=== PATIENT | female | born 1960 | race Caucasian/White ===

== ENCOUNTER → 2018-09-20 15:50 | Outpatient (CLI) | payer OTHER, SELFPAY ==
[2018-08-13 12:07] VITALS: BMI 28.2
--- NOTE | 2018-09-20 15:52 | BI_ITS ---
MAMMOGRAPHY - BILATERAL SCREENING REASON FOR EXAM: Female, 58 years old. Routine annual screening examination. PERTINENT HISTORY: Grandmother with breast cancer. TECHNIQUE: Digital bilateral breast apolinar (3D mammographic acquisition) in the CC and MLO projections. 2-D mediolateral oblique (MLO) and craniocaudad (CC) views of both breasts were obtained. CAD: Full Field Digital Mammography with Computer Added Detection was performed. COMPARISON: Comparison is made with prior outside examination dated June 06, 2011. FINDINGS: Breast Composition: The breasts are heterogeneously dense, which may obscure small masses. There are no dominant masses or suspicious calcifications. No other significant abnormalities are identified. There has been no significant change since the prior study. BI/SCREEN MAMM (CAD) W/APOLINAR BILAT IMPRESSION: Stable bilateral screening mammogram. Yearly follow-up mammogram recommended. (A) ASSESSMENT CATEGORY: BIRADS Category 1: Negative. A letter regarding these results will be sent to the patient by the facility within 30 days. Approximately 10% of breast cancers are not detected by mammography. A normal mammogram should not delay biopsy of a clinically suspicious abnormality. [id number] Electronically Signed: Chito Salgado, at 9:17 EDT , Service support ,
== END ==
PROVIDERS: Referring Provider Obstetrics & Gynecology; Visit Provider Obstetrics & Gynecology
DX: Z12.31 Encounter for screening mammogram for malignant neoplasm of breast (principal)
CPT/HCPCS: 77063; 77067

== ENCOUNTER → 2018-10-08 17:40 | Outpatient (CLI) | payer OTHER, SELFPAY ==
[2018-10-08 15:57] VITALS: BMI 27.8
[2018-10-11 11:28] LABS: HPV APTIMA, High Risk Negative (Negative)
== END ==
PROVIDERS: Referring Provider Obstetrics & Gynecology; Visit Provider Obstetrics & Gynecology
DX: Z01.419 Encounter for gynecological examination (general) (routine) without abnormal findings (principal)
CPT/HCPCS: 87624; 88175; G0145

== ENCOUNTER → 2021-03-28 15:35 | Outpatient (CLI) | payer OTHER, SELFPAY ==
--- NOTE | 2021-03-28 15:37 | BI_ITS ---
MAMMOGRAPHY - BILATERAL SCREENING REASON FOR EXAM: Female, 60 years old. Routine annual screening examination. PERTINENT HISTORY: Grandmother with breast cancer. Remote left excisional breast biopsy. TECHNIQUE: Digital bilateral breast apolinar (3D mammographic acquisition) in the CC and MLO projections. 2-D mediolateral oblique (MLO) and craniocaudad (CC) views of both breasts were obtained. CAD: Full Field Digital Mammography with Computer Added Detection was performed. COMPARISON: Comparison is made with prior examination of 09/20/2018. FINDINGS: Breast Composition: The breasts are heterogeneously dense, which may obscure small masses. There are no dominant masses or suspicious calcifications. Stable small benign-appearing bilateral axillary lymph nodes. No other significant abnormalities are identified. There has been no significant change since the prior study. BI/SCRN MAMM (CAD)W/APOLINAR BILAT IMPRESSION: Stable bilateral screening mammogram. Yearly follow-up mammogram recommended. (A) ASSESSMENT CATEGORY: BIRADS Category 2: Benign. A letter regarding these results will be sent to the patient by the facility within 30 days. Approximately 10% of breast cancers are not detected by mammography. A normal mammogram should not delay biopsy of a clinically suspicious abnormality. [id number] Electronically Signed: Chito Salgado MD at 8:21 EDT , Service support ,
== END ==
PROVIDERS: PCP Family Medicine; Referring Provider Obstetrics & Gynecology; Visit Provider Obstetrics & Gynecology
DX: Z12.31 Encounter for screening mammogram for malignant neoplasm of breast (principal)
CPT/HCPCS: 77063; 77067

== ENCOUNTER → 2022-05-16 | Outpatient (CLI) | payer OTHER, SELFPAY ==
[2022-05-24 14:55] LABS: HPV APTIMA, High Risk Negative (Negative)
== END | disposition home or self-care (01) ==
LOC: LABSPEC 16:32
PROVIDERS: PCP Family Medicine; Visit Provider Obstetrics & Gynecology
DX: Z01.419 Encounter for gynecological examination (general) (routine) without abnormal findings (principal)
CPT/HCPCS: 87624; 88175; G0145

== ENCOUNTER → 2022-06-07 | Outpatient (CLI) | payer OTHER, SELFPAY ==
--- NOTE | 2022-06-07 15:30 | BI_ITS ---
MAMMOGRAPHY - BILATERAL SCREENING REASON FOR EXAM: Female, 61 years old. Routine annual screening examination. PERTINENT HISTORY: Grandmother with breast cancer. Remote left excisional breast biopsy. TECHNIQUE: Digital bilateral breast apolinar (3D mammographic acquisition) in the CC and MLO projections. 2-D mediolateral oblique (MLO) and craniocaudad (CC) views of both breasts were obtained. CAD: Full Field Digital Mammography with Computer Added Detection was performed. COMPARISON: Comparison is made with prior examination dated 03/28/2021 and 09/20/2018. FINDINGS: Breast Composition: The breasts are heterogeneously dense, which may obscure small masses. There are no dominant masses or suspicious calcifications. Stable small benign-appearing bilateral axillary lymph nodes. No other significant abnormalities are identified. There has been no significant change since the prior study. BI/SCRN MAMM (CAD)W/APOLINAR BILAT IMPRESSION: Stable bilateral screening mammogram. Yearly follow-up mammogram recommended. (A) ASSESSMENT CATEGORY: BIRADS Category 2: Benign. A letter regarding these results will be sent to the patient by the facility within 30 days. Approximately 10% of breast cancers are not detected by mammography. A normal mammogram should not delay biopsy of a clinically suspicious abnormality. [id number] Electronically Signed: Chito Salgado MD at 8:10 EST ,
== END | disposition home or self-care (01) ==
LOC: OPBI 15:29
PROVIDERS: PCP Family Medicine; Visit Provider Obstetrics & Gynecology
DX: Z01.419 Encounter for gynecological examination (general) (routine) without abnormal findings (principal); Z92.89 Personal history of other medical treatment; Z80.3 Family history of malignant neoplasm of breast; Z12.31 Encounter for screening mammogram for malignant neoplasm of breast
CPT/HCPCS: 77063; 77067

== ENCOUNTER → 2023-07-03 | Outpatient (CLI) | payer OTHER, SELFPAY ==
--- NOTE | 2023-07-03 13:26 | RAD_ITS ---
STUDY: X-RAY CHEST REASON FOR EXAM: Female, 63 years old. Cough and wheezing. TECHNIQUE: Frontal and lateral views of the chest. COMPARISON: None. FINDINGS: Hyperinflation. There is no demonstrated pleural abnormality. Normal size heart. Normal mediastinum and roque. Normal visualized pulmonary arteries. Normal visualized aortic arch and descending thoracic aorta. Normal visualized thoracic spine. Normal visualized ribs, clavicles, and shoulders. There is no demonstrated abnormality of the visualized soft tissue structures of the upper abdomen. RAD/Chest PA and Lateral IMPRESSION: Hyperinflation with no acute or active cardiopulmonary disease. Electronically Signed: Johnny Kennedy MD at 14:34 EST ,
== END | disposition home or self-care (01) ==
LOC: MTRAD 13:25
PROVIDERS: PCP Family Medicine; Referring Provider Family Medicine; Visit Provider Family Medicine
DX: J40 Bronchitis, not specified as acute or chronic (principal)
CPT/HCPCS: 71046

== ENCOUNTER → 2024-09-11 | Outpatient (CLI) | payer BC, SELFPAY ==
[2024-09-16 12:08] LABS: 17-Hydroxyprogesterone 47 ng/dL (.)
[2024-09-18 13:08] LABS: DHEA Sulfate 93.5 ug/dL (20.4-186.6); PROLACTIN 14.4 ng/mL (3.6-25.2); Testosterone Free 3.5 pg/mL (0.0-4.2)
== END | disposition home or self-care (01) ==
LOC: LAB 06:18
PROVIDERS: PCP Family Medicine; Referring Provider Obstetrics & Gynecology; Visit Provider Obstetrics & Gynecology
DX: N94.89 Other specified conditions associated with female genital organs and menstrual cycle (principal); N90.89 Other specified noninflammatory disorders of vulva and perineum
CPT/HCPCS: 36415; 82627; 83498; 84146; 84402; 84403; 82626

== ENCOUNTER → 2024-09-15 | Outpatient (CLI) | payer BC, SELFPAY ==
--- NOTE | 2024-09-15 15:30 | BI_ITS ---
EXAM: SCRN MAMM (CAD)W/APOLINAR BILAT DATE: 09/15/2024 CLINICAL HISTORY: F, Age 64 y/o , SCREENING MAMMOGRAM. Remote left excisional breast biopsy. Grandmother with breast cancer. BREAST CANCER RISK ASSESSMENT: Not assessed. TECHNIQUE: Bilateral screening digital breast tomosynthesis with 2D and 3D images. Computer aided detection. COMPARISON: Prior exam(s) dating back to June 07, 2022.. FINDINGS: Bilateral Breast Mammographic Findings: No significant masses, calcifications or other abnormalities are identified. TISSUE DENSITY: The breast tissue is heterogenously dense, which may obscure small masses. No suspicious masses, areas of developing architectural distortion, or suspicious calcifications. BI/SCRN MAMM (CAD)W/APOLINAR BILAT IMPRESSION: Right Breast: BI-RADS category 1, negative findings. Left Breast: BI-RADS category 1, negative findings. Normal interval followup mammograms are recommended in 12 months. A letter with findings and recommendations will be mailed to the patient. ASSESSMENT: BIRADS 1 NEGATIVE RECOMMENDATION: 1: ROUTINE ANNUAL FOLLOW-UP Bilateral in 1 Year Reading Location: [place] [id number]
== END | disposition home or self-care (01) ==
LOC: OPBI 15:18
PROVIDERS: PCP Family Medicine; Referring Provider Obstetrics & Gynecology; Visit Provider Obstetrics & Gynecology
DX: Z12.31 Encounter for screening mammogram for malignant neoplasm of breast (principal); Z80.3 Family history of malignant neoplasm of breast
CPT/HCPCS: 77063; 77067

== ENCOUNTER → 2024-09-19 | Outpatient (CLI) | payer BC, SELFPAY ==
--- NOTE | 2024-09-19 15:20 | US_ITS ---
EXAM: Pelvic ultrasound CLINICAL HISTORY: Adnexal mass COMPARISON: None available TECHNIQUE: Transabdominal and transvaginal scanning of the pelvis. FINDINGS: Retroverted uterus measuring 8.5 x 5.5 x 4.5 cm with 2 discrete fibroids both located in the posterior fundal region of the 1st measuring 3.5 x 3.6 x 3.6 cm, the 2nd measuring 2.7 x 2.9 x 1.9 cm. Right ovary is not visualized due to bowel gas. Left ovary is normal with preserved symmetric vascular flow, and contains a simple cyst measuring 3.1 x 2.6 x 2.1 cm. No fluid in the cul-de-sac. Endometrial thickness is normal measuring 5 mm. Nabothian cysts are seen. US/Pelvic w/ Transvaginal IMPRESSION: Leiomyomatous uterus. Nonvisualization of the right ovary. 3.1 cm simple left ovarian cyst. Reading Location: [facility]
== END | disposition home or self-care (01) ==
LOC: US 15:19
PROVIDERS: PCP Family Medicine; Referring Provider Obstetrics & Gynecology; Visit Provider Obstetrics & Gynecology
DX: N94.89 Other specified conditions associated with female genital organs and menstrual cycle (principal); N90.89 Other specified noninflammatory disorders of vulva and perineum
CPT/HCPCS: 76830; 76856

== ENCOUNTER → 2024-11-03 | Outpatient (CLI) | payer BC, SELFPAY ==
--- NOTE | 2024-11-03 15:50 | US_ITS ---
PROCEDURE: PELVIC W/ TRANSVAGINAL (USPELTVAG), 11/03/2024 REASON FOR EXAM: ADNEXAL MASS TECHNIQUE: Grayscale and color doppler transabdominal and transvaginal pelvic ultrasound was performed. COMPARISON: 09/19/2024 FINDINGS: Uterus: 9.4 x 5.8 x 5.6 cm, Retroflexed. Hypoechoic presumed fibroids up to 3.7 x 3.3 x 2.7 cm, previously up to 3.5 x 3.6 x 3.6 cm. Endometrium: 4 mm, echogenic secretory appearance. Cervix: Lesion measuring 1.7 x 1.0 x 1.4 cm could reflect a complex nabothian cyst however this is not definite. This was not seen previously.. Right ovary: 2.5 x 2.2 x 1.2 cm. Unremarkable. Left ovary: 4.1 3.4 x 2.5 cm. Simple appearing unilocular cyst measures 2.6 x 3.0 x 2.2 cm without detected vascularity. A simple appearing unilocular LEFT ovarian cyst previously measured 3.1 x 2.1 x 2.6 cm. Free fluid: None visualized. Other: Estimated bladder volume 401 mL..
== END | disposition home or self-care (01) ==
LOC: US 15:49
PROVIDERS: PCP Family Medicine; Referring Provider Obstetrics & Gynecology; Visit Provider Obstetrics & Gynecology
DX: D25.9 Leiomyoma of uterus, unspecified (principal); N94.89 Other specified conditions associated with female genital organs and menstrual cycle
CPT/HCPCS: 76830; 76856

== ENCOUNTER → 2025-05-11 | Outpatient (CLI) | payer BC, SELFPAY ==
--- NOTE | 2025-05-11 15:54 | US_ITS ---
PROCEDURE: PELVIC W/ TRANSVAGINAL REASON FOR EXAM: OVARIAN CYST TECHNIQUE: Procedure Code: USPELTVAG Modality: US Procedure: PELVIC W/ TRANSVAGINAL COMPARISON: November 03, 2024. FINDINGS: Measurements: Uterus: 7.6 cm x 5.7 cm x 4 cm with a volume of 90.9 mL Endometrial Thickness: 3 mm hyperechoic. Right Ovary: 2.9 cm x 1.6 cm x 1.1 cm with a volume of 2.7 mL. Left Ovary: 3.6 cm x 4.3 cm x 2.8 cm with a volume of 22.6 mL. TRANSABDOMINAL: Uterus: Retroverted. Once again, there are 3 uterine fibroids. The largest fibroid measures 4.2 cm 3.8 cm 3.2 cm. This is essentially unchanged. There is also evidence of a 1.4 cm x 1.4 cm x 0.8 cm complex nodular density in the cervix. This may represent a complex nabothian cyst although a fibroid should be excluded. This is unchanged as well. Endometrium: Unremarkable. Right ovary: Normal size and echotexture. Left ovary: Stable 3 cm x 3.4 cm x 2.4 cm unilocular cyst. Other: No large pelvic mass identified. Transvaginal sonography was performed to better visualize the endometrium. TRANSVAGINAL: Uterus: Retroverted. Stable fibroid uterus. Endometrium: Normal echotexture. Right ovary: Normal size and echotexture. Left ovary: Stable 3 cm x 3.4 cm 2.4 cm simple cyst. Other adnexal findings: None. Cul-de-sac: No free intraperitoneal fluid identified. Tenderness: No tenderness US/Pelvic w/ Transvaginal IMPRESSION: Stable examination. Reading Location: [id number]
--- OUTSIDE RECORDS SUMMARY | 2025-05-11 19:18 | XMS RPT_ITS | CCD ---
Author Organization [facility] Care Team Providers Care Crm Solution Architect Name Role Phone Dr. Kortney Schneider Primary Care Provider Dr. Kortney Schneider Referring Provider [phone] Dr. Teri Daniels Attending Provider [phone] Wyatt DIAZ, Dr. Sheets Primary Care Provider Wyatt DIAZ, Dr. Sheets Referring Provider Mateo Saldana Attending Provider Jeremiah DIAZ, Dr. Williamson Attending Provider Jeremiah DAIZ, Dr. Williamson Referring Provider Teri Daniels Attending Unavailable Teri Daniels Referring Unavailable Ksedel, Kortney Primary Care Unavailable Miedel, Kortney Primary Care Unavailable Teri Daniels Attending Unavailable Miedel, Kortney Referring Unavailable Miedel, Kortney Referring Unavailable Mateo Saldana Attending Unavailable Miedel, Kortney Primary Care Unavailable Miedel, Kortney Referring Unavailable Teri Daniels Attending Unavailable Miedel, Kortney Primary Care Unavailable Teri Daniels Attending Unavailable Miedel, Kortney Primary Care Unavailable Teri Daniels Referring Unavailable Miedel, Kortney Primary Care Unavailable Teri Daniels Referring Unavailable Teri Daniels Attending Unavailable Teri Daniels Attending Unavailable Teri Daniels Referring Unavailable Miedel, Kortney Primary Care Unavailable Teri Daniels Attending Unavailable Miedel, Kortney Primary Care Unavailable Teri Daniels Referring Unavailable Miedel, Kortney Primary Care Unavailable Teri Daniels Referring Unavailable Teri Daniels Attending Unavailable Medications Current Medications Medication Drug Class(es) Dates Sig (Normalized) Sig (Original) [place] (Nk) (3 sources) Start: 05-09-2021 [place] (Nk) A ctive May 09, 2021 12:00am Completed/Discontinued Medications Medication Drug Class(es) Dates Sig (Normalized) Sig (Original) benzonatate 200 mg oral capsule (4 sources) Non-narcotic Antitussive Start: End: take 1 capsule by mouth three times daily as needed for cough Benzonatate 200 mg capsule Discontinued 200 mg PO THREE TIMES A DAY as needed for cough August 12, 2024 1:00am September 08, 2024 3:23pm methylPREDNISolone 4 mg oral tablet (4 sources) Corticosteroid Start: End: take 1 tablet by mouth once Methylprednisolone (Medrol (Tab)) 4 mg tablets,dose pack Discontinued 0 PO per package directions August 12, 2024 1:00am September 08, 2024 3:23pm PO PER PKG DIR valACYclovir 1000 mg oral tablet (14 sources) Herpesvirus Nucleoside Analog DNA Polymerase Inhibitor, Herpes Simplex Virus Nucleoside Analog DNA Polymerase Inhibitor, Herpes Zoster Virus Nucleoside Analog DNA Polymerase Inhibitor Start: End: Valacyclovir (Valtrex) 1 gram tablet Discontinued 1000 mg PO TWICE A DAY 04 05June 28, 2021 12:30pm September 08, 2024 3:24pm Start: 09-06-2018 End: 10-11-2018 Valacyclovir (Valtrex) 1 gra m tablet Discontinued 1000 mg PO TWICE A DAY 10 September 06, 2018 1:00am October 10, 2018 12:00am October 11, 2018 12:08am Problems Active Problems Problem Classification Problem Date Documented Date Episodic/Chronic Benign neoplasm of uterus (10 sources) Uterine leiomyoma; Translations: [Leiomyoma of uterus, unspecified] Onset: 11-06-2024 09-08-2024 Episodic Comment on above: multiple fibroids, 1 2 week size uterus Other female genital disorders (15 sources) Mass of uterine adnexa; Translations: [Other specified conditions associated with female genital organs and menstrual cycle] 05-17-2023 Episodic Comment on above: ordered US, labs stable on exam. orde red pelvic us compare with previous [facility] scan Other female genital disorders (8 sources) Hypertrophy of clitoris; Translations: [Other specified noninflammatory disorders of vulva and perineum] 09-08-2024 Episodic Comment on above: ordered US and labs Past or Other Problems Problem Classification Problem Date Documented Date Episodic/Chronic Other female genital disorders (3 sources) Other specified conditions associated with female genital organs and menstrual cycle; Translations: [Other specified symptoms associated with female genital organs] Onset: 09-26-2024 Episodic Other female genital disorders (1 source) Other specified noninflammatory disorders of vulva and perineum; Translations: [Other specified noninflammatory disorders of vulva and perineum] Onset: 09-08-2024 Episodic Other screening for suspected conditions (not mental disorders or infectious disease) (2 sources) Encounter for screening mammogram for malignant neoplasm of breast; Translations: [Encounter for screening mammogram for malignant neoplasm of breast] Onset: 05-24-2024 Episodic Results Test Name Value Interpretation Reference Range Facility First Line Supervisor Office Visit Reporton 11-10-2024 First Line Supervisor Office Visit Report [facility]'s [address], [address] [place] [address] OFFICE VISIT Date of Service: 11/10/24 MR#: [id number] Acct: [id number] Name: TERI RICHTER Rep #: [id number] : 1960 Provider: Dr. Teri swain MD Age/Sex: 64/F [facility] Status: Signed Intake Vital Signs 09/08/24 15:22 11/10/24 09:47 11/10/24 09:48 Height 5 ft 9 in 5 ft 9 in 5 ft 9 in Weight: 185 lb 6 oz BMI 27.3 BP 151/90 H Intake Visit Reasons: US discussion for management Photocomposing Keyboard Operator Required: No Is patient in pain?: No Allergies No Known Allergies Allergy (Verified 11/10/24 09:47) Medications ???Medication ???Instructions ???Recorded ???Confirmed ???Type NK 11/10/24 11/10/24 History Is last menstrual period known: No Post menopausal: Yes Patient : No : No [facility] Medical History (Updated 11/11/24 @ 09:[address] Teri Daniels MD) Fibroadenoma of breast Encounter for gynecological examination Uterine fibroid H/O colposcopy with cervical biopsy History of hypertension Surgical History (Updated 11/10/24 @ 10:[address] Teri Daniels MD) H/O dilation and curettage H/O LEEP H/O: knee surgery Family History Grandmother Breast cancer CVA (cerebral vascular accident) Alzheimer disease Grandfather CVA (cerebral vascular accident) Social History Smoking Status: Never smoker alcohol intake: current details: social substance use type: does not use caffeine: Yes what type of physical activity do you participate in: walking seatbelt use: always do you feel safe at home: Yes additional social history: single -[place] [facility] US discussion for management Details: TERI RICHTER is a 64 year old who presents for follow up after ultrasound and labwork. simple adnexal cyst is 3 cm and stable. patient denies any pain or pressure, firboids stable. she states she does recall a remote history when she was a child of her having clitoromegaly and her mom having to tell her doctor not to surgically reduce the size, so she thinks that this may have been a chronic issure and it may have just been more prominent on this last exam. History 0 Elective abortions Hx Para Spontaneous abortions Hx # Term Pregnancies Ectopic pregnancies Hx # Pregnancies Multiple births # of living children ROS Const Constitutional: Denies fatigue, fever(s), headache(s), increased appetite, poor appetite, weight gain or weight loss GI GI: Reports as per HPI; Denies abdominal pain, constipation, nausea or vomiting : Reports as per HPI; Denies difficulty voiding, dysuria, hematuria, pelvic pain, urinary frequency, urinary incontinence, urinary hesitancy, urinary urgency, vaginal discharge, vaginal dryness, vaginal odor, vaginal pruritus or other Exam Const General: cooperative, healthy appearing, comfortable, no acute distress and well developed Orientation: alert HENMT Head: normal to inspection and normocephalic Ears: hearing grossly normal bilaterally and external ears normal Nose: external nose normal and nares normal Face and sinus: normal facial exam Neck Neck: normal visual inspection, no lymphadenopathy and trachea midline Thyroid: thyroid normal Resp Effort Inspection: normal respiratory effort Musc Other: gross motor intact no deficits, full bilateral strength Skin General: no rashes or lesions noted Neuro Motor: muscle tone normal throughout Coding Level of Care Code Off vis,est,level 3 Diagnoses Adnexal mass N94.89 H/O LEEP Z98.890 Uterine fibroid D25.9 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 counseled regardin options, prefers exp managment. repeat US in 6 months, labs WNL. (2) H/O LEEP: Status: Acute (3) Uterine fibroid: Status: Acute Comment: multiple fibroids, 12 week size uterus (4) Clitoromegaly: Status: Acute Comment: ordered US and labs- WNL. has history of this per patient, may have just been enlarged moreso on recent exam Orders: Orders Pelvic w/ Transvaginal 6 Months N94.89 - Other specified conditions associated with female genital organs and menstrual cycle Plan Problem list updated and treatment plans were reviewed with the patient and relevant educational handouts given. See problem list details for specific plan information. 11/11/24918 Date [facility] Daniels [facility]: Date (if applicable) CC: Normal [facility] Pelvic w/ Transvaginalon Pelvic w/ Transvaginal [facility] Imaging Services [address] [place], [place] [address] Pelvic w/ Transvaginal MR#: [id number] Acct: [id number] Name: TERI RICHTER Rep #: [id number] : 1960 F 64 From: Nehemias Chen MD PCP: Dr. Kortney Schneider MD Status: REG CLI Study: Pelvic w/ Transvaginal Date of Exam: 11/03/24 Exam# [id number] Ordering Dr: Teri Daniels PROCEDURE: PELVIC W/ TRANSVAGINAL (USPELTVAG), 11/03/2024 REASON FOR EXAM: ADNEXAL MASS TECHNIQUE: Grayscale and color doppler transabdominal and transvaginal pelvic ultrasound was performed. COMPARISON: 09/19/2024 FINDINGS: Uterus: 9.4 x 5.8 x 5.6 cm, Retroflexed. Hypoechoic presumed fibroids up to 3.7 x 3.3 x 2.7 cm, previously up to 3.5 x 3.6 x 3.6 cm. Endometrium: 4 mm, echogenic secretory appearance. Cervix: Lesion measuring 1.7 x 1.0 x 1.4 cm could reflect a complex nabothian cyst however this is not definite. This was not seen previously.. Right ovary: 2.5 x 2.2 x 1.2 cm. Unremarkable. Left ovary: 4.1 3.4 x 2.5 cm. Simple appearing unilocular cyst measures 2.6 x 3.0 x 2.2 cm without detected vascularity. A simple appearing unilocular LEFT ovarian cyst previously measured 3.1 x 2.1 x 2.6 cm. Free fluid: None visualized. Other: Estimated bladder volume 401 mL.. US/Pelvic w/ Transvaginal IMPRESSION: 1. Redemonstrated 3.0 cm simple appearing unilocular LEFT ovarian cyst, O-RADS 2. Given persistence, a benign neoplasm such as a cystadenoma is possible. Size is borderline per O-RADS guidelines; conservatively would recommend follow-up pelvic ultrasound in 12 months given that the patient is postmenopausal. 2. 1.7 cm potentially solid-appearing cervical lesion could alternatively reflect a complex nabothian cyst. Recommend updated cervical cancer screening and correlation with physical exam as well as attention on above follow-up imaging. 3. Presumed fibroids up to 3.7 cm. 4. Additional description as above. Reading Location: [id number] CC: Dr. Kortney Schneider MD; Dr. Teri Daniels MD Bus System Operator: Signed Normal [facility] Pelvic w/ Transvaginalon Pelvic w/ Transvaginal [facility] Imaging Services [address] [place] [address] Pelvic w/ Transvaginal MR#: [id number] Acct: [id number] Name: TERI RICHTER Rep #: [id number] : 1960 F 64 From: Jarrett Fox MD PCP: Dr. Kortney Schneider MD Status: REG CLI Study: Pelvic w/ Transvaginal Date of Exam: 09/19/24 Exam# [id number] Ordering Dr: Teri Daniels EXAM: Pelvic ultrasound CLINICAL HISTORY: Adnexal mass COMPARISON: None available TECHNIQUE: Transabdominal and transvaginal scanning of the pelvis. FINDINGS: Retroverted uterus measuring 8.5 x 5.5 x 4.5 cm with 2 discrete fibroids both located in the posterior fundal region of the 1st measuring 3.5 x 3.6 x 3.6 cm, the 2nd measuring 2.7 x 2.9 x 1.9 cm. Right ovary is not visualized due to bowel gas. Left ovary is normal with preserved symmetric vascular flow, and contains a simple cyst measuring 3.1 x 2.6 x 2.1 cm. No fluid in the cul-de-sac. Endometrial thickness is normal measuring 5 mm. Nabothian cysts are seen. US/Pelvic w/ Transvaginal IMPRESSION: Leiomyomatous uterus. Nonvisualization of the right ovary. 3.1 cm simple left ovarian cyst. Reading Location: [facility] CC: Dr. Kortney Schneider MD; Dr. Teri Daniels MD Bus System Operator: Signed Normal [facility] DHEA Sulfateon 09-18-2024 DHEA SULFATE 93.5 ug/dL Normal 20.4-186.6 [facility] Comment on above: Order Comment: N Performed By: #### L 3100.9000, L3400.4800, L3100.5400, L509.3001, L3300.1500 #### [facility] [address] [place], [address] PROLACTIN 4465on 09-18-2024 PROLACTIN 14.4 ng/mL Normal 3.6-25.2 [facility] Comment on above: Performed By: #### L 3100.9000, L3400.4800, L3100.5400, L509.3001, L3300.1500 #### [facility] [address] [place], [place], [address] Testosterone Freeon 09-19-19 TESTOSTER FREE 3.5 pg/mL Normal 0.0-4.2 [facility] Comment on above: Result Comment: Perf ormed at: [address] [id number] Tower Attendant: Tony Mccabe PhD, Phone: [phone] Performed at: [address] [id number] Tower Attendant: Eli Bush MD, Phone: [phone] Performed By: #### L 3100.9000, L3400.4800, L3100.5400, L509.3001, L3300.1500 ####[facility] [address] [place], [place], [address] 17-Hydroxyprogesteroneon 17ALPHA OH-PROG 47 ng/dL Normal . [facility] Comment on above: Order Comment: Test( s) 494614-62-GU Progesterone LCMS was developed and its performance characteristics determined by [employer]. It has not been cleared or approved by the Food and Drug Administration. N Result Comment: Adul t Female Follicular 15 - 70 Luteal 35 - 290 Performed at: [address] [id number] Tower Attendant: Eli Bush MD, Phone: [phone] Performed By: #### L 3100.9000, L3400.4800, L3100.5400, L509.3001, L3300.1500 #### [facility] [address] [place], [address] Breast imaging reportOrdered By: Chito Salgado on 09-16-2024 Study report [facility] Imaging Services [address] [place] [address] SCRN MAMM (CAD)W/APOLINAR BILAT MR#: [id number] Acct: [id number] Name: TERI RICHTER Rep #: [id number] : 1960 F 64 From: Conner Salgado MD PCP: Dr. Kortney Schneider MD Status: [facility] Study:SCRN MAMM (CAD)W/APOLINAR BILAT Date of Exa m: 09/15/24 Exam# [id number] Ordering Dr: Teri Delaney MD EXAM: SCRN MAMM (CAD)W/APOLINAR BILAT DATE: 09/15/2024 CLINICAL HISTORY: F, Age 64 y/o , SCREENING MAMMOGRAM. Remote left excisional breast biopsy. Grandmother with breast cancer. BREAST CANCER RISK ASSESSMENT: Not assessed. TECHNIQUE: Bilateral screening digital breast tomosynthesis with 2D and 3D images. Computeraided detection. COMPARISON: Prior exam(s) dating back to June 07, 2022.. FINDINGS: Bilateral Breast Mammographic Findings: No significant masses, calcifications or other abnormalities are identified. TISSUE DENSITY: The breast tissue is heterogenously dense, which may obscure small masses. No suspicious masses, areas of developing architectural distortion, or suspicious calcifications. BI/SCRN MAMM (CAD)W/APOLINAR BILAT IMPRESSION: Right Breast: BI-RADS category 1, negative findings. Left Breast: BI-RADS category 1, negative findings. Normal interval followup mammograms are recommended in 12 months. A letter with findings and recommendations will be mailed to the patient. ASSESSMENT: BIRADS 1 NEGATIVE RECOMMENDATION: 1: ROUTINE ANNUAL FOLLOW-UP Bilateral in 1 Year Reading Location: [facility] CC: Dr. Kortney Schneider MD; Dr. Teri Daniels MD ~ Bus System Operator: Signed [facility] SCRN MAMM (CAD)W/APOLINAR BILATo n 09-15-2024 SCRN MAMM (CAD)W/APOLINAR BILAT [facility] Imaging Services [address] [place] [address] SCRN MAMM (CAD)W/APOLINAR BILAT MR#: [id number] Acct: [id number] Name: TERI RICHTER Rep #: [id number] : 1960 F 64 From: Chito hyatt MD PCP: Dr. Kortney Schneider MD Status: REG CLI Study: SCRN MAMM (CAD)W/APOLINAR BILAT Date of Exam: 08/30 01/23 Exam# [id number] Ordering Dr: Teri Daniels EXAM: SCRN MAMM (CAD)W/APOLINAR BILAT DATE: 09/15/2024 CLINICAL HISTORY: F, Age 64 y/o , SCREENING MAMMOGRAM. Remote left excisional breast biopsy. Grandmother with breast cancer. BREAST CANCER RISK ASSESSMENT: Not assessed. TECHNIQUE: Bilateral screening digital breast tomosynthesis with 2D and 3D images. Computer aided detection. COMPARISON: Prior exam(s) dating back to June 07, 2022.. FINDINGS: Bilateral Breast Mammographic Findings: No significant masses, calcifications or other abnormalities are identified. TISSUE DENSITY: The breast tissue is heterogenously dense, which may obscure small masses. No suspicious masses, areas of developing architectural distortion, or suspicious calcifications. BI/SCRN MAMM (CAD)W/APOLINAR BILAT IMPRESSION: Right Breast: BI-RADS category 1, negative findings. Left Breast: BI-RADS category 1, negative findings. Normal interval followup mammograms are recommended in 12 months. A letter with findings and recommendations will be mailed to the patient. ASSESSMENT: BIRADS 1 NEGATIVE RECOMMENDATION: 1: ROUTINE ANNUAL FOLLOW-UP Bilateral in 1 Year Reading Location: [place] [address] CC: Dr. Kortney Schneider MD; Dr. Teri Daniels MD Bus System Operator: Signed Normal [facility] 17-Hydroxyprogesterone [Mass /Vol]Ordered By: Teri Dainels on 09-11-2024 17-Hydroxyprogesterone 47 ng/dL . [facility] Comment on above: Adult Female Follicu lar 15 - 70 Luteal 35 - 290Performed at: [facility] [id number] Director: Eli Bush MD, Phone: [phone] Dehydroepiandrosterone sulfa te (DHEA-S) measurementOrdered By: Teri Daniels on 09-11-2024 Dehydroepiandrosterone Sulfate 93.5 ug/dL 20.4-186.6 [facility] L509.3001on 09-11-2024 Testosterone [Mass/Vol] 29.60 ng/dL Normal [facility] Comment on above: Performed By: #### L 3100.9000, L3400.4800, L3100.5400, L509.3001, L3300.1500 #### [facility] [address] [place], [address] Laboratory - Chemistry and C hemistry - challengeOrdered By: Teri Daniels on 09-11-2024 Testosterone [Mass/Vol] 29.60 ng/dL [facility] Prolactin [Mass/Vol]Ordered By: Teri Daniels on 09-11-2024 Prolactin 14.4 ng/mL 3.6-25.2 [facility] Serum or plasma 17-hydroxypr ogesterone measurement (mass/volume)Ordered By: Teri Daniels on 09-11-2024 17-Hydroxyprogesterone [Mass/Vol] 47 ng/dL . [facility] Comment on above: Adult Female Follicu lar 15 - 70 Luteal 35 - 290Performed at: [facility] [id number] Director: Eli Bush MD, Phone: [phone] Serum or plasma free testost erone measurement (mass/volume)Ordered By: Teri Daniels on 09-11-2024 Testosterone Free [Mass/Vol] 3.5 pg/mL 0.0-4.2 [facility] Comment on above: Performed at: [employer] [address] [id number] Director: Tony Mccabe PhD, Phone: [phone] at: [employer] [id number] Director: Eli Bush MD, Phone: [phone] Serum or plasma prolactin me asurement (mass/volume)Ordered By: Teri Daniels on 09-11-2024 Prolactin [Mass/Vol] 14.4 ng/mL 3.6-25.2 [facility] Testosterone Free [Mass/Vol] Ordered By: Teri Daniels on 09-11-2024 Free Testosterone 3.5 pg/mL 0.0-4.2 [facility] Comment on above: Performed at: [employer] [address] [id number] Director: Tony Mccabe PhD, Phone: [phone] at: [employer] [address] [id number] Director: Eli Bush MD, Phone: [phone] First Line Supervisor Office Visit Reporton 09-08-2024 First Line Supervisor Office Visit Report [facility]'s [address], [address] [place] [address] OFFICE VISIT Date of Service: 09/08/24 MR#: [id number] Acct: [id number] Name: TERI RICHTER Rep #: [id number] : 1960 Provider: Dr. 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 Teri Daniels MD) Fibroadenoma of breast Encounter for gynecological examination Uterine fibroid H/O colposcopy with cervical biopsy History of hypertension Surgical History H/O dilation and curettage H/O LEEP H/O: knee surgery Family History Grandmother Breast cancer CVA (cerebral vascular accident) Alzheimer disease Grandfather CVA (cerebral vascular accident) Social History Smoking Status: Never smoker alcohol intake: current details: social substance use type: does not use caffeine: Yes what type of physical activity do you participate in: walking seatbelt use: always do you feel safe at home: Yes additional social history: single -[place] History 0 Elective abortions Hx Para Spontaneous abortions Hx # Term Pregnancies Ectopic pregnancies Hx # Pregnancies Multiple births # of living children HPI Encounter for routine gynecological examination Details: TERI RICHTER is a 64 year old who presents for annual exam. Last PAP: 05/16/2022 - normal History of abnormal PAP: yes leep Last mammogram: 06/07/2022 - normal History of abnormal mammogram: nl Colon cancer screening: up to date Other preventative health care screenings: PCP [facility] Female Reproductive History Menopausal Symptoms: No hot flashes, No night sweats, No difficulty concentrating and No change in libido ROS Const Constitutional: Reports as per HPI; Denies fatigue, increased appetite, poor appetite, night sweats, weight gain or weight loss Cardio Card: Denies chest pain Resp Resp: Denies cough or dyspnea GI GI: Reports as per HPI; Denies abdominal pain, bloating, constipation, nausea or vomiting : Reports as per HPI and other; Denies difficulty voiding, dysuria, hematuria, hot flashes, nipple discharge, pelvic pain, prolapse symptoms, urinary frequency, urinary incontinence, urinary urgency, vaginal discharge, vaginal dryness, vaginal odor or vaginal pruritus Skin Skin/Breast: Reports breast skin changes; Denies changing lesions, breast mass, breast pain or nipple discharge Psych Psych: Denies anxiety, change in libido, depression or difficulty concentrating Exam Const General: cooperative, healthy appearing, comfortable, no acute distress, well developed and well groomed [facility] Head: normal to inspection and normocephalic Ears: hearing grossly normal bilaterally and external ears normal Nose: external nose normal Face and sinus: normal facial exam Neck Neck: normal visual inspection, full ROM and no lymphadenopathy Thyroid: thyroid normal Chest Chest palpation inspection: normal inspection of the chest Breast inspection: normal inspection of the breasts and normal inspection of the axillae Breast palpation: normal palpation of the breasts, normal palpation of the axillae and no axillary lymphadenopathy Resp Effort Inspection: normal respiratory effort GI Inspection: normal to inspection and non-distended Palpation: soft, no hepatosplenomegaly and no guarding General: bladder normal to palpation External Female Exam: normal external appearance, normal appearance of the urethra and no lesions Urethra: normal appearance of the urethra and normal palpation Speculum Exam - Vagina: normal appearance of the vagina, normal vaginal discharge and other (clitoromegaly) Speculum Exam - Cervix: normal appearance of the cervix, no cervical discharge, no lesions and nontender Bimanual Exam- Vagina Uterus: normal bimanual exam (mildly enlarged), bladder normal to palpation, No tender, uterine mobility normal, consistency normal, non-tender, no cervical motion tenderness and enlarged (12 week uterus with adnexal mass now also palpated, different from previous) Bimanual Exam- Adnexa, other: non-tender and mass on the right Skin General: no rashes or lesions noted Neuro General: jose (more content not included)... Normal [facility] Urgent Care Visit Reporton 0 08-12-2024 Urgent Care Visit Report [facility] [address], [address] [place] [address] OFFICE VISIT Date of Service: 08/12/24 MR#: [id number] Acct: [id number] Name: TERI RICHTER Rep #: [id number] : 1960 Provider: RADHA Guillermo Age/Sex: 64/F Location[place] [facility] Status: Signed Intake Vital Signs 05/17/23 15:43 08/12/24 12:09 Height 5 ft 9 in 5 ft 9 in Weight: 197 lb BMI 29.0 BP 102/60 Position Sitting Pulse 91 Temp 98.3 F Temp Source Oral Pulse Oximetry (%) 98 Oxygen Delivery Method room air Intake Visit Reasons: CHEST CONGESTION Accompanied by: Self Allergies No Known Allergies Allergy (Verified 08/12/24 12:06) Medications ???Medication ???Instructions ???Recorded ???Confirmed ???Type valacyclovir 1 gram tablet 1,000 mg PO BID 5 days #10 tabs 05/17/23 Rx (Valtrex) benzonatate 200 mg capsule 200 mg PO TID PRN cough #20 caps 0 08/12/24 08/12/24 Rx methylprednisolone 4 mg tablets in See Rx Instructions PO PER PKG D IR 08/12/24 08/12/24 Rx a dose pack (Medrol (Tab)) #21 tabs Have you fallen in the past year?: No Nurse's Note: Patient has chest congestion and ST and Diarrhea and Fever. Patient states that her fever broke. Patient also has tightness in her chest. Patient has been taking vitamins and Mucinex. [facility] Medical History (Updated 05/17/23 @ 16:[address] Teri Daniels MD) Fibroadenoma of breast Encounter for gynecological examination Uterine fibroid Ovarian cyst H/O colposcopy with cervical biopsy History of hypertension Surgical History H/O dilation and curettage H/O LEEP H/O: knee surgery Family History Grandmother Breast cancer CVA (cerebral vascular accident) Alzheimer disease Grandfather CVA (cerebral vascular accident) Social History Smoking Status: Never smoker alcohol intake: current details: social substance use type: does not use caffeine: Yes what type of physical activity do you participate in: walking seatbelt use: always do you feel safe at home: Yes additional social history: single -[place] HPI HPI Details: TERI RICHTER, is a 64 F who presents to the office today for approximately 96-hour history of persistent fever, chills, cough, chest tightness/congestion (w/o sob/jacobs), DORSEY, myalgias, fatigue, and diarrhea.??? No complaints of chest pain or shortness of breath or dyspnea on exertion. Nonsmoker. Several close contacts recently diagnosed with similar URI complaints. No over the counter taken to assist. No other associated symptoms and no other alleviating/aggravati ng factors. ROS Const Constitutional: No other (As above) Exam Const General: cooperative, healthy appearing and no acute distress Orientation: alert, awake and oriented x3 HENMT Head: normal to inspection Ears: hearing grossly normal bilaterally, external ears normal, TM's normal bilaterally and EAC's normal Nose: external nose normal, nares normal, septum normal and clear nasal discharge Face and sinus: normal facial exam, sinuses nontender and face symmetric Mouth: oral mucosae normal, lip normal, tongue normal and oropharynx normal Throat: posterior oropharynx normal, tonsils normal, uvula midline and no postnasal drainage Eyes General: appearance normal, both eyes and all related structures Neck Neck: normal visual inspection, full ROM, no lymphadenopathy, no meningeal signs and supple Neck mass: No Thyroid: thyroid normal Lymphatic: no lymphadenopathy noted Chest Chest palpation inspection: normal inspection of the chest Resp Effort Inspection: normal respiratory effort, able to speak in complete sentences and cough Quality of cough: wet (nonproductive in office today) Auscultation: Bilateral: Clear to Auscultation Cardio Palpation: normal PMI Rate: tachycardic Rhythm: regular rhythm Heart Sounds: S1 normal, S2 normal, no gallops, no murmurs and no rubs Pulses: radial pulses present Skin General: no rashes or lesions noted Neuro General: patient alert, patient awake and patient oriented x3 Cognition: normal cognition Speech: speech normal Psych Appearance: grossly normal Mental Status: mental status grossly normal Mood: congruent mood Affect: normal affect Speech and Movement: speech and movement normal Attitude: cooperative Diagnoses Influenza A??? J10.1 Assessment and Plan Assessment and Plan (1) Influenza A: Status: Acute Plan: See POC results. Medrol and benzonatate as prescribed today. Supportive measures as instructed today. Work excuses as provided. Follow-up with PCP in 5 to 7 days should symptoms not improve, ED sooner should symptoms worsen (more content not included)... Normal [facility] Cervical or vagninal specime n microscopic examination by cytology stain (reported ason 05-16-2022 Cytology report Cyto stain Doc (Cvx/Vag) Comment . [facility] Work Phone: Comment on above: The Pap smear is a s creening test designed to aid in thedetection of premalignant and malignant conditions of theuterine cervix. It is not a diagnostic procedure andshould not be used as the sole means of detecting cervicalcancer. Both false-positive and false-negative reports dooccur. Detection in cervical specim en of any of human papilloma virus (HPV) 16, 18, 31, 33,on 05-16-2022 HPV 16+18+31+33+35+39+45+51+5 2+56+58+59+66+68 DNA Probe+sig amp Ql (Cvx) Negative Negative [facility] Work Phone: Comment on above: This nucleic acid am plification test detects fourteen high-risk HPV types (16,18,31,33,35,39,45,51,52,56,58,59,66,68)without differentiation. Laboratory - Cytologyon 05-02 Asbestos Remover Cyto stain Nom (Cvx/Vag) [ID] Comment . [facility] Work Phone: Comment on above: Reinaldo Belle ytotechnologist (ASCP) Laboratory - Miscellaneous t estson 05-16-2022 Service comment (Unsp spec) [Interp] Comment . [facility] Work Phone: Comment on above: This liquid based Th inPrep(R) pap test was screened withthe use of an image guided system. Service comment (Unsp spec) [Interp] . . [facility] Work Phone: Liquid-based cerv Pap + CT/G C by MANDI w reflex to high-risk HPV for ASCUSon 05-16-2022 Cytology report Cyto stain.thin prep Doc (Cvx/Vag) Comment . [facility] Work Phone: Comment on above: Criteria not met, HP V Genotype not performed.Performed at: [address] [place] [id number] Director: Scarlet Vaughn MD, Phone: [phone] at: =G - [facility] [address] [place] [id number] Director: Scarlet Vaughn MD, Phone: [phone] No Panel Informationon 05-16 Pathology report final diagnosis Narrative Comment . [facility] Work Phone: Comment on above: NEGATIVE FOR INTRAEP ITHELIAL LESION OR MALIGNANCY.CELLULAR CHANGES ASSOCIATED WITH ATROPHY ARE PRESENT. Vital Signs Date Time Vital Sign Value Performing Clinician Faci lity 09-08-2024 15:22-0400 Body height 175.[address] Kortney Schneider MD Work Phone: [facility] 09-08-2024 15:22-0400 Body mass index (BMI) [Ratio] 29.1 kg/m2 Dr. Kortney Schneider MD Work Phone: [facility] 09-08-2024 15:22-0400 Body weight 89.[address] Kortney Schneider MD Work Phone: [facility] 09-08-2024 15:22-0400 Diastolic blood pressure 89 mm[Hg] Dr. Kortney Schneider MD Work Phone: [facility] 09-08-2024 15:22-0400 Systolic blood pressure 136 mm[Hg] Dr. Kortney Schneider MD Work Phone: [facility] 08-12-2024 12:09-0500 Body mass index (BMI) [Ratio] 29 kg/m2 Dr. Kortney Schneider MD Work Phone: [facility] 08-12-2024 12:09-0500 Body temperature 98.3 [degF] Dr. Kortney Schneider MD Work Phone: [facility] 08-12-2024 12:09-0500 Body weight 89.[address] Kortney Scnheider MD Work Phone: [facility] 08-12-2024 12:09-0500 Diastolic blood pressure 60 mm[Hg] Dr. Kortney Schneider MD Work Phone: [facility] 08-12-2024 12:09-0500 Heart rate 91 /min Dr. Kortney Schneider MD Work Phone: [facility] 08-12-2024 12:09-0500 SaO2% (BldA) [Mass fraction] 98 % Dr. Kortney Schneider MD Work Phone: [facility] 08-12-2024 12:09-0500 Systolic blood pressure 102 mm[Hg] Dr. Kortney Schneider MD Work Phone: [facility] 05-17-2023 15:43-0500 Body height 175.[address] Kortney Schneider Work Phone: [facility] 05-17-2023 15:43-0500 Body mass index (BMI) [Ratio] 29.5 kg/m2 Dr. Kortney Schneider Work Phone: [facility] 05-17-2023 15:43-0500 Body weight 90.[address] Kortney Schneider Work Phone: [facility] 05-17-2023 15:43-0500 Diastolic blood pressure 90 mm[Hg] Dr. Kortney Schneider Work Phone: [facility] 05-17-2023 15:43-0500 Systolic blood pressure 150 mm[Hg] Dr. Kortney Schneider Work Phone: [facility] 05-16-2022 14:27-0500 Body height 175.[address] Kortney Schneider Work Phone: [facility] Work Phone: 05-16-2022 14:26-0500 Body mass index (BMI) [Ratio] 30.1 kg/m2 Dr. Kortney Schneider Work Phone: [facility] Work Phone: 05-16-2022 14:26-0500 Body weight 92.[address] Kortney Schneider Work Phone: [facility] Work Phone: 05-16-2022 14:26-0500 Diastolic blood pressure 82 mm[Hg] Dr. Kortney Schneider Work Phone: [facility] Work Phone: 05-16-2022 14:26-0500 Systolic blood pressure 163 mm[Hg] Dr. Kortney Schneider Work Phone: [facility] Work Phone: Encounters Encounter Date Encounter Type Care Provider Facility Start: 05-11-2025 ambulatory Kortney Schneider Facility: [facility] Start: 11-10-2024 End: 11-10-2024 ambulatory Kortney Schneider Facility[place] Start: 11-03-2024 End: 11-03-[address] Kortney Schneider MD Work Phone: [facility] Work Phone: Start: 11-03-2024 End: 11-03-[address] Teri Daniels MD -Ultrasound, [facility] Work Phone: Start: 11-03-2024 End: 11-03-2024 ambulatory Kortney Schneider Facility:[facility] Start: 09-19-2024 End: 09-19-[address] Kortney Schneider MD Work Phone: [facility] Work Phone: Start: 09-19-2024 End: 09-19-[address] Teri Daniels MD -Ultrasound, [facility] Work Phone: Start: 09-19-2024 End: 09-19-2024 ambulatory Teri Daniels Facility:[facility] Start: 09-15-2024 End: 09-15-[address] Kortney Schneider MD Work Phone: [facility] Work Phone: Start: 09-15-2024 End: 09-15-[address] Teri Daniels MD -Outpatient Breast Imaging Work Phone: Start: 09-15-2024 End: 09-15-2024 ambulatory Teri Daniels Facility:[facility] Start: 09-11-2024 End: 09-11-[address] Kortney Schneider MD Work Phone: [facility] Work Phone: Start: 09-11-2024 End: 09-11-[address] Teri Daniels MD -Laboratory Work Phone: Start: 09-11-2024 End: 09-11-2024 ambulatory eTri Daniels Facility:[facility] Start: 09-08-2024 End: 09-08-[address] Teri Daniels MD -[facility] Work Phone: Start: 09-08-2024 End: 09-08-[address] Teri Daniels MD [facility] Start: 09-08-2024 End: 09-08-2024 ambulatory Kortney Schneider [place] Start: 08-12-2024 End: 08-12-2024 Patient encounter procedure Mateo Shepherd HI -[facility] Work Phone: Start: 08-12-2024 End: 08-12-2024 ambulatory Kortney Schneider Facility:[facility] Start: 05-28-2024 ambulatory Teri Callejasi lity:[facility] Start: 07-03-2023 End: 07-03-[address] Kortney Schneider Work Phone: [facility] Work Phone: Start: 07-03-2023 End: 07-03-[address] Kortney Schneider Work Phone: [facility] Work Phone: Start: 05-17-2023 End: 05-17-[address] Kortney Schneider Work Phone: [facility] Work Phone: Start: 06-07-2022 End: 06-07-[address] Kortney Schneider Work Phone: [facility] Work Phone: Start: 06-07-2022 End: 06-07-[address] Kortney Schneider Work Phone: [facility]-Outpatient Breast Imaging Start: 05-16-2022 End: 05-16-[address] Kortney Schneider Work Phone: [facility] Work Phone: Start: 05-16-2022 End: 05-16-[address] Kortney Schneider Work Phone: [facility]-Laboratory, Specimen Start: 05-16-2022 End: 05-16-[address] Kortney Schneider Work Phone: [facility] Procedures Date Procedure Procedure Detail Performing Clinician Start: 11-03-[address] Kortney Schneider MD Work Phone: Start: 09-19-[address] Kortney Schneider MD Work Phone: Start: 09-15-[address] Kortney Schneidre MD Work Phone: Start: 09-11-[address] Kortney Schneider MD Work Phone: Start: 07-03-2023 Plain chest X-ray Dr. Kortney Schneider Work Phone: Start: 06-07-[address] Kortney Schneider Work Phone: Plan of Treatment Date Care Activity Detail Author Start: 09-19-2024 Pelvic echography Pelvic w/ Transvag inal [facility] Start: 09-19-2024 Pelvis [facility] MG Breast - bilatera l Screening [facility] Work Phone: [facility] Payers Date Payer Category Payer Self-pay [id number] 2024 Unknown [id number] 2024 Unknown [id number] Unknown ANTHEM [id number] Unknown [id number] 2.16.8 [id number] Unknown [id number] 2.16.8 [id number] Unknown [id number] 2.16.8 [id number] Unknown [id number] 2.16.8 [id number] Unknown [id number] 2.16.8 [id number] Unknown [id number] 2.16.8 [id number] Unknown [id number] 2.16.8 [id number] Unknown [id number] 2.16.8 [id number] Unknown [id number] 2.16.8 [id number] Social History Date Type Detail Facility Start: 05-16-2022 End: 05-17-2023 Tobacco smoking status NHIS Unknown if ever smoked [facility] Start: 1960 Sex Assigned At Female [facility] Start: 05-17-2023 Tobacco smoking stat us NHIS Never smoked tobacco (finding) [facility] Start: 09-21-2024 End: 09-26-2024 Sex Female (finding) [facility] Radiology Diagnostic study note 11-03-2024 Note Date & Type Note Facility 11-03-2024 Radiology Diagnostic study note [facility] Imaging Services [address] [place] [address] Pelvic w/ Transvaginal MR#: [id number] Acct: [id number] Name: TERI RICHTER Rep #: [id number] : 1960 F 64 From: Dede Chen MD PCP: Dr. Kortney Schneiedr MD Status: REG CLI Study:Pelvic w/ Transvaginal Date of Exam: 11/03/24 Exam# [id number] Ordering Dr: Teri Delaney MD PROCEDURE: PELVIC W/ TRANSVAGINAL (USPELTVAG), 11/03/2024 REASON FOR EXAM: ADNEXAL MASS TECHNIQUE: Grayscale and color doppler transabdominal and transvaginal pelvic ultrasound was performed. COMPARISON: 09/19/2024 FINDINGS: Uterus: 9.4 x 5.8 x 5.6 cm, Retroflexed. Hypoechoic presumed fibroids up to 3.7x 3.3 x 2.7 cm, previously up to 3.5 x 3.6 x 3.6 cm. Endometrium: 4 mm, echogenic secretory appearance. Cervix: Lesion measuring 1.7 x 1.0 x 1.4 cm could reflect a complex nabothian cyst however this is not definite. This was not seen previously.. Right ovary: 2.5 x 2.2 x 1.2 cm. Unremarkable. Left ovary: 4.1 3.4 x 2.5 cm. Simple appearing unilocular cyst measures 2.6 x 3.0 x 2.2 cm without detected vascularity. A simple appearing unilocular LEFT ovarian cyst previously measured 3.1 x 2.1 x 2.6 cm. Free fluid: None visualized. Other: Estimated bladder volume 401 mL.. US/Pelvic w/ Transvaginal IMPRESSION: 1. Redemonstrated 3.0 cm simple appearing unilocular LEFT ovarian cyst, O-RADS 2. Given persistence, a benign neoplasm such as a cystadenoma is possible. Size is borderline per O-RADS guidelines; conservatively would recommend follow-up pelvic ultrasound in 12 months given that the patient is postmenopausal. 2. 1.7 cm potentially solid-appearing cervical lesion could alternatively reflect a complex nabothian cyst. Recommend updated cervical cancer screening and correlation with physical exam as well as attention on above follow-up imaging. 3. Presumed fibroids up to 3.7 cm. 4. Additional description as above. Reading Location: [id number] CC: Dr. Kortney Schneider MD; Dr. Teri Daniels MD ~ Bus System Operator: Signed [facility] Radiology Diagnostic study note 09-24-2024 Note Date & Type Note Facility 09-24-2024 Radiology Diagnostic study note [facility] Imaging Services [address] [place], [place] [address] Pelvic w/ Transvaginal MR#: [id number] Acct: [id number] Name: TERI RICHTER Rep #: [id number] : 1960 F 64 From: Cheikh Fox MD PCP: Dr. Kortney Schneider MD Status: REG CLI Study:Pelvic w/ Transvaginal Date of Exam: 09/19/24 Exam# [id number] Ordering Dr: Teri Delaney MD EXAM: Pelvic ultrasound CLINICAL HISTORY: Adnexal mass COMPARISON: None available TECHNIQUE: Transabdominal and transvaginal scanning of the pelvis. FINDINGS: Retroverted uterus measuring 8.5 x 5.5 x 4.5 cm with 2 discrete fibroids both located in the posterior fundal region of the 1st measuring 3.5 x 3.6 x 3.6 cm, the 2nd measuring 2.7 x 2.9 x 1.9 cm. Right ovaryis not visualized due to bowel gas. Left ovary is normal with preserved symmetric vascular flow, and contains a simple cyst measuring 3.1 x 2.6 x 2.1 cm. No fluid in the cul-de-sac. Endometrial thickness is normal measuring 5 mm. Nabothian cysts are seen. US/Pelvic w/ Transvaginal IMPRESSION: Leiomyomatous uterus. Nonvisualization of the right ovary. 3.1 cm simple left ovarian cyst. Reading Location[facility] CC: Dr. Kortney Schneider MD; Dr. Teri Daniels MD ~ Bus System Operator: Signed [facility] Evaluation note 09-08-2024 Note Date & Type Note Facility 09-08-2024 Evaluation note Diagnosis Onset Date Resolution Adnexal mass acute September 08, 2024 3:17pm Clitoromegaly acute September 08, 2024 3:17pm Uterine fibroid acute August 3:17pm Encounter for routine gynecological examination noneactive September 08, 2024 3:17pm [facility] Work Phone: Clinical Note 05-16-2022 Note Date & Type Note Facility 05-16-2022 Note [facility] Work Phone: Pap Smear Specimen Adequacy May 16, 2022 4:37pm Comment . Satisfactory for evaluation. Endocervical component may not bedistinguished in cases of atrophy. Comment on above: Satisfactory for leo luation. Endocervical component may not bedistinguished in cases of atrophy. Clinical Note 05-16-2022 Note Date & Type Note Facility 05-16-2022 Note [facility] Work Phone: Pap Smear Specimen Adequacy May 16, 2022 4:37pm Comment . Satisfactory for evaluation. Endocervical component may not bedistinguished in cases of atrophy. Comment on above: Satisfactory for leo luation. Endocervical component may not bedistinguished in cases of atrophy. 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) Reason for Visit Adnexal mass Encounter for routine gynecological examination Chief Complaint 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) SCREENING Reason for Visit Adnexal mass Encounter for routine gynecological examination Chief Complaint 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) Reason for Visit [id number] Chief Complaint Admit Date CHEST CONGESTION August 12, 2024 12:09pm 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) September 08, 2024 3:1 7pm screening mammogram September 15, 2024 2:3 9pm ADNEXAL MASS September 19, 2024 3:1 6pm Reason for Visit Admit Date Adnexal mass September 08, 2024 3:1 7pm Clitoromegaly September 08, 2024 3:1 7pm Uterine fibroid September 08, 2024 3:1 7pm Encounter for routine gynecological exam ination September 08, 2024 3:17pm Chief Complaint Admit Date CHEST CONGESTION August 12, 2024 12:09pm 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) September 08, 2024 3:1 7pm screening mammogram September 15, 2024 2:3 9pm ADNEXAL MASS September 19, 2024 3:1 6pm ADNEXAL MASS November 03, 2024 3:47pm Family History No Family History Records Found Relationship Condition Age at Onset Recorded Date/T delmy grandmother Malignant neoplasm of breast Unknown Cerebrovascular accident (CVA) Unknown Alzheimer's disease Unknown grandfather Cerebrovascular accident (CVA) Unknown Summary Purpose Advance Directives No Advanced Directives Records Found Additional Source Comments Goals (unrecognized section and content) Goals may be documented in a n alternate sectionGoals may be documented in an alternate sectionGoals may be documented in an alternate sectionGoals may be documented in an alternate sectionGoals may be documented in an alternate sectionGoals may be documented in an alternate sectionGoals may be documented in an alternate section Care Teams (unrecognized sec tion and content) Team Status: Active Member Role Status Dates No Primary Care Physician Family Provider Active Dr. Kortney Schneider MD Primary Care Provider Active Team Status: Inactive Member Role Status Dates Dr. Kortney Schneider MD Primary Care Provider, [facility] Provider Active Dr. Teri Daniels MD Attending Provider Active Team Status: Inactive Member Role Status Dates Dr. Kortney Schneider MD Primary Care Prov ider, Attending Provider, Referring Provider Active Team Status: Active Member Role Status Dates Dr. Kortney Schneider MD Primary Care Provider Active Team Status: Inactive Member Role Status Dates Dr. Kortney Schneider MD Primary Care Provider Active Start: August 12, 2024 End: August 12, 2024 Dr. Kortney Schneider MD Referring Provider Active Start: August 12, 2024 End: August 12, 2024 Mateo Shepherd PA, PA Attending Provider Active Start: August 12, 2024 End: August 12, 2024 Team Status: Inactive Member Role Status Dates Dr. Kortney Schneider MD Primary Care Provider Active Start: September 08, 2024 End: September 08, 2024 Dr. Kortney Schneider MD Referring Provider Active Start: September 08, 2024 End: September 08, 2024 Dr. Teri Daniels MD Attending Provider Active Start: September 08, 2024 End: September 08, 2024 Team Status: Inactive Member Role Status Dates Dr. Kortney Schneider MD Primary Care Provider Active Start: September 11, 2024 End: September 11, 2024 Dr. Teri Daniels MD Attending Provider Active Start: September 11, 2024 End: September 11, 2024 Dr. Teri Daniels MD Referring Provider Active Start: September 11, 2024 End: September 11, 2024 Team Status: Active Member Role Status Dates Dr. Kortney Schneider MD Primary Care Provider Active Start: September 15, 2024 Dr. Teri Daniels MD Attending Provider Active Start: September 15, 2024 Dr. Teri Daniels MD Referring Provider Active Start: September 15, 2024 Team Status: Active Member Role Status Dates Dr. Kortney Schneider MD Primary Care Provider Active Start: September 19, 2024 Dr. Teri Daniels MD Attending Provider Active Start: September 19, 2024 Dr. Teri Daniels MD Referring Provider Active Start: September 19, 2024 Team Status: Inactive Member Role Status Dates Dr. Kortney Schneider MD Primary Care Provider Active Start: September 15, 2024 End: September 15, 2024 Dr. Teri Daniels MD Attending Provider Active Start: September 15, 2024 End: September 15, 2024 Dr. Teri Daniels MD Referring Provider Active Start: September 15, 2024 End: September 15, 2024 Team Status: Inactive Member Role Status Dates Dr. Kortney Schneider MD Primary Care Provider Active Start: September 19, 2024 End: September 19, 2024 Dr. Teri Daniels MD Attending Provider Active Start: September 19, 2024 End: September 19, 2024 Dr. Teri Daniels MD Referring Provider Active Start: September 19, 2024 End: September 19, 2024 Team Status: Inactive Member Role Status Dates Dr. Kortney Schneider MD Primary Care Provider Active Start: November 03, 2024 End: November 03, 2024 Dr. Teri Daniels MD Attending Provider Active Start: November 03, 2024 End: November 03, 2024 Dr. Teri Daniels MD Referring Provider Active Start: November 03, 2024 End: November 03, 2024 INFORMATION SOURCE (unrecogn ized section and content) DATE CREATED AUTHOR 05/09/2025 [facility] FOR RECORDS PERTAINING TO PATIENTS WHO ARE OR HAVE BEEN ENROLLED IN A CHEMICAL DEPENDENCY/SUBSTANCEABUSE PROGRAM, SOME INFORMATION MAY BE OMITTED. This clinical summary was aggregated from multiple sources. Caution should be exercised in using it in the provision of clinical care. This summary normalizes information from multiple sources, and as a consequence, information in this document may materially change the coding, format and clinical context of patient data. In addition, data may be omitted in some cases. CLINICAL DECISIONS SHOULD BE BASED ON THE PRIMARY CLINICAL RECORDS. [employer] provides no warranty or guarantee of the accuracy or completeness of information in this document.
== END | disposition home or self-care (01) ==
LOC: US 15:46
PROVIDERS: PCP Family Medicine; Referring Provider Obstetrics & Gynecology; Visit Provider Obstetrics & Gynecology
DX: N83.202 Unspecified ovarian cyst, left side (principal)
CPT/HCPCS: 76830; 76856